=== PATIENT | male | born 1945 | race Caucasian/White ===

== ENCOUNTER 2020-06-04 09:59 | Emergency (ER) | payer MEDICARE, SELFPAY ==
--- NOTE | ~2020-06-04 | CT_ITS ---
EXAMINATION: CT HEAD WITHOUT CONTRAST CT CERVICAL SPINE WITHOUT CONTRAST CLINICAL INFORMATION: Fall. COMPARISON: None TECHNIQUE: CT of the head and cervical spine were performed without intravenous contrast. Multiplanar reformats were rendered and reviewed. This CT examination was performed using dose optimization techniques as appropriate, variously including the following: *Automated exposure control *Adjustment of mA and/or kV according to patient size (this includes techniques or standardized protocols for targeted exams where dose is matched to indication/reason for exam; i.e. extremities or head) *Use of iterative reconstruction technique DLP: 780 mGy-cm. FINDINGS: CT head: No intracranial hemorrhage, large infarction, or mass lesion is seen. No extra-axial collection is appreciated. The ventricles are normal in size and configuration without evidence of hydrocephalus. Mild volume loss is identified. Tiny calcification is seen in the left basal ganglia. The visualized paranasal sinuses and mastoid air cells are clear. CT cervical spine: The cervical alignment is normal. The craniocervical junction is normal. The vertebral body heights are maintained. No cervical spine fracture is seen. Multilevel degenerative changes are seen with osteophytes. Disc narrowing is present at C4-C5, 5-6 and C6-C7 levels. Marked facet arthropathy is seen at C2-C3 on the left side. The paraspinal soft tissues are within normal limits. The partially imaged lung apices are clear. CT/CT head/brain wo con IMPRESSION: CT head: No acute intracranial finding. CT cervical spine: No cervical spine fracture or traumatic malalignment identified.
--- NOTE | ~2020-06-04 | CT_ITS ---
EXAMINATION: CT HEAD WITHOUT CONTRAST CT CERVICAL SPINE WITHOUT CONTRAST CLINICAL INFORMATION: Fall. COMPARISON: None TECHNIQUE: CT of the head and cervical spine were performed without intravenous contrast. Multiplanar reformats were rendered and reviewed. This CT examination was performed using dose optimization techniques as appropriate, variously including the following: *Automated exposure control *Adjustment of mA and/or kV according to patient size (this includes techniques or standardized protocols for targeted exams where dose is matched to indication/reason for exam; i.e. extremities or head) *Use of iterative reconstruction technique DLP: 780 mGy-cm. FINDINGS: CT head: No intracranial hemorrhage, large infarction, or mass lesion is seen. No extra-axial collection is appreciated. The ventricles are normal in size and configuration without evidence of hydrocephalus. Mild volume loss is identified. Tiny calcification is seen in the left basal ganglia. The visualized paranasal sinuses and mastoid air cells are clear. CT cervical spine: The cervical alignment is normal. The craniocervical junction is normal. The vertebral body heights are maintained. No cervical spine fracture is seen. Multilevel degenerative changes are seen with osteophytes. Disc narrowing is present at C4-C5, 5-6 and C6-C7 levels. Marked facet arthropathy is seen at C2-C3 on the left side. The paraspinal soft tissues are within normal limits. The partially imaged lung apices are clear. CT/CT cervical spine wo con IMPRESSION: CT head: No acute intracranial finding. CT cervical spine: No cervical spine fracture or traumatic malalignment identified.
--- NOTE | ~2020-06-04 | XR_ITS ---
EXAMINATION: XR SHOULDER, LEFT CLINICAL INFORMATION: Status post fall. Left shoulder pain. COMPARISON: None TECHNIQUE: AP and scapular Y views of the left shoulder. FINDINGS: Acromial clavicular and glenohumeral joint alignments are maintained. There is no evidence of acute fracture or dislocation on the submitted 2 views. Normal osseous mineralization. No evidence of soft tissue calcifications. No evidence of soft tissue air or radiopaque foreign body. On limited evaluation, the visualized left ribs appear intact. No left pneumothorax is seen. Visualized left lung is clear. XR/XR shoulder LT min 2V IMPRESSION: No evidence of acute fracture or dislocation on the submitted 2 views of the left shoulder.
[2020-06-04 10:06] VITALS: BP 141/78; PULSE 68
[2020-06-04 10:07] VITALS: BP 171/69; PULSE 71; RESP 18; TEMP 36.6; O2SAT 97; BMI 27.4
--- NOTE | 2020-06-04 10:09 | ED_ITS ---
HPI - Fall General Chief Complaint: Fall Stated Complaint: FALL DOWN FLIGHT OF STAIRS,SHOULDER PAIN Time Seen by Provider: 06/04/20 10:09 Source: EMS Mode of arrival: EMS Limitations: no limitations History of Present Illness HPI Narrative: 75-year-old male who denies significant past medical/surgical history not currently taking any medications he presents via EMS from home with complaint of fall down a flight of stairs. He reports he had slippers on he was going down to the basement which has a carpeted stair case he slipped on the top of the stair and landed on his buttock and left shoulder and slid all the way down. States he had back of his head there was positive LOC and family/neighbor called EMS. States the only thing is bothering right now his left shoulder. He denies any prodromal symptoms, chest pain, shortness of breath, abdominal pain or lower extremity injury. He has otherwise not had any recent illnesses. He is up-to-date on his vaccinations. He is in a cervical collar. Onset (ago): minute(s) Fall from: standing Fall witnessed: yes, by family Place fall occurred: home Loss of consciousness: yes Length of LOC: second(s) Prolonged down time: no Symptoms prior to fall: none Context: tripped/slipped Location of injury: other (Left shoulder) Location of injury - extremities: left: shoulder Severity scale (1-10): 5 Associated symptoms (after fall): denies Related Data Allergies Allergy/AdvReac Type Severity Reaction Status Date / Time codeine Allergy Abdominal Verified 06/04/20 10:05 Pain Review of Systems Review of Systems: Constitutional: No Weight loss, No Fever, No Chills, No Night Sweats, No Fatigue, No Malaise ENT/Mouth: No Hearing loss, No Ear Pain, No Nasal Congestion, No Sinus Pain, No Hoarseness, No sore throat, No Rhinorrhea, No Swallowing Difficulty Eyes: No Eye Pain, No Swelling, No Redness, No Foreign Body, No Discharge, No Vision Changes Cardiovascular: No Chest Pain, No SOB, No Dyspnea on Exertion, No Orthopnea, No Edema, No Palpitations Respiratory: No Cough, No Sputum, No Wheezing, No Smoke Exposure, No Dyspnea Gastrointestinal: No Nausea, No Vomiting, No Diarrhea, No Constipation, No abdominal Pain, No Hematochezia, No Melena Genitourinary: no irregular bleeding, No Dysuria, No Urinary Frequency, No Hematuria, No Urinary Incontinence, No Urgency, No Flank Pain, No Urinary Flow Changes, No Hesitancy Musculoskeletal: No joint pain, No Myalgias, No Joint Swelling, as noted per HPI Skin: No Skin Lesions, No rash Neuro: No Weakness, No Numbness, No Paresthesias, No Loss of Consciousness, No Dizziness, No Headache Psych: No Social Issues Heme/Lymph: No Bruising, No Bleeding,No Lymphadenopathy Endocrine: No Polyuria, No Polydipsia, No Temperature Intolerance Yes all other systems are reviewed and are negative [facility] Past Medical History Medical History (Updated 06/04/20 @ 13:14 by Mat Munoz NP) Patient denies medical problems Social History Social History Alcohol intake: current Alcohol intake frequency: 0-2 drinks per day Smoking Status: Never smoker Use of substances other than those prescribed or required for medical reasons: No Advance Directives: No Advance Directives Information Provided: No Physical Exam Vital Signs: Vital Signs: Last Vital Signs Temp 97.8 F 06/04/20 10:07 Pulse 71 06/04/20 10:07 Resp 18 06/04/20 10:07 BP 141/71 H 06/04/20 11:41 Pulse Ox 97 06/04/20 10:07 Body Mass Index 27.4 Reviewed Const: Other: He is able to Greet me with a smile however he grimaces when he moves his left shoulder. General: cooperative and healthy appearing; No acute distress or intoxicated appearing Nutritional Appearance: average body habitus Orientation/consciousness: patient oriented x3 HENMT: Head: Yes normal to inspection Ears: hearing grossly normal bilaterally Eyes: General: appearance normal, both eyes and all related structures Visual Long: normal visual long by confrontation Neck: Other: He has a cervical collar in place Neck: Yes normal visual inspection, No positive Brudzinski's sign, No positive Kernig's sign and No tender Thyroid: Thyroid normal Chest: Chest palpation & inspection: normal inspection of the chest Resp: Effort & Inspection: normal respiratory effort Auscultation: clear to auscultation bilaterally Cardio: Jugular venous distension: no JVD Rhythm: regular rhythm Heart sounds: S1 normal heart sound present and S2 normal heart sound present GI: Inspection: Yes normal to inspection Palpation (GI): Soft to palpation, nontender, no guarding, not rigid and hepatosplenomegaly present Percussion: Yes normal to percussion Auscultation: normal bowel sounds : General: Yes no CVA tenderness Back/Spine/Pelvis: Back: no CVA tenderness Skin: General skin exam: no rashes or lesions noted Neuro: General: patient oriented x3 Extrem: General: Yes normal to inspection Shoulder/upper arm images: 1. Pain over this area and held in flexed position across his chest. Neurovascularly intact. No obvious deformity. No ecchymosis. Course Course Course Narrative: Head and cervical spine CT negative, left shoulder x-ray unremarkable. He is has full range of motion without pain now in the left shoulder after Tylenol. No other complaints of pain or discomfort. He got our bed ambulatory status with gait. Will discharge home with minor head injury, concussion, contusion, return follow-up precautions. He feels comfortable plan. Stable for discharge. MDM - Fall Medical Records Attestation: I reviewed the patient's medical records. Lab Data Attestation: I reviewed the patient's lab results. Result diagrams: 06/04/20 10:21 06/04/20 10:21 Labs: Lab Results 06/04/20 06/04/20 Range/Units 10:21 10:21 WBC 6.2 (4.8-10.8) X10*3/uL RBC 4.80 (4.60-5.80) X10*6/uL Hgb 14.1 (14.0-18.0) g/dl Hct 41.8 L (42-52) % MCV 87.1 (80-98) fL MCH 29.4 (27.0-33.0) pg MCHC 33.7 (31.0-36.0) g/dl RDW 12.6 (11.0-16.0) % Plt Count 205 (160-400) X10*3/uL MPV 10.0 (9.4-12.4) fL Immature Gran % (Auto) 0.3 (0.0-0.4) % Neut % (Auto) 52.2 (45-73) % Lymph % (Auto) 34.7 (20-40) % [place] % (Auto) 6.9 (2-11) % Eos % (Auto) 5.3 H (0-4) % Baso % (Auto) 0.6 (0-2) % Lymph # (Auto) 2.2 (1.2-4.9) X10*3/uL [place] # (Auto) 0.4 (0.1-1.2) X10*3/uL Eos # (Auto) 0.3 (0.0-0.4) X10*3/uL Baso # (Auto) 0.0 (0.0-0.2) X10*3/uL Abs Immat Gran (auto) 0.02 (0.00-0.03) X10*3/uL Absolute Neuts (auto) 3.2 (2.0-8.3) X10*3/uL Absolute Nucleated RBC 0.000 (0.0-0.012) X10*3/uL Nucleated RBC % (auto) 0.0 (0.0-0.2) /100WBC Sodium 137 (135-145) mmol/L Potassium 4.4 (3.3-5.1) mmol/L Chloride 104 (96-108) mmol/L Carbon Dioxide 26 (22-29) mmol/L Anion Gap 11 L (12-20) BUN 20 H (9-16) mg/dL Creatinine 1.12 (0.5-1.4) mg/dL Estim Creat Clear Calc 51.7 Estimated GFR > 60 Random Glucose 171 H (60-115) mg/dL Calcium 9.0 (8.4-10.2) mg/dL Total Bilirubin 0.8 (0.0-1.0) mg/dL AST 18 (5-37) U/L ALT 23 (0-40) U/L Alkaline Phosphatase 57 (39-117) U/L Total Protein 6.1 L (6.5-8.0) g/dL Albumin 3.7 (3.5-5.0) g/dL Imaging Data Head/cervical spine CT: Radiologist's impression: [address] [id number] Scan ReportSigned Patient: Alfredito RousseauMR#: [id number]: [id number]:[id number]/Sex: 75 / MADM Date: 06/04/20Loc: HO.EDAttending Dr: Ordering Physician: Mat Munoz NP Date of Service: 06/04/20 Procedure(s): CT cervical spine wo con Accession Number(s): [id number] cc: Mat Munoz FREIGHT SEPARATOR~ EXAMINATION: CT HEAD WITHOUT CONTRAST CT CERVICAL SPINE WITHOUT CONTRAST CLINICAL INFORMATION: Fall. COMPARISON: None TECHNIQUE: CT of the head and cervical spine were performed without intravenous contrast. Multiplanar reformats were rendered and reviewed. This CT examination was performed using dose optimization techniques as appropriate, variously including the following: *Automated exposure control *Adjustment of mA and/or kV according to patient size (this includes techniques or standardized protocols for targeted exams where dose is matched to indication/reason for exam; i.e. extremities or head) *Use of iterative reconstruction technique DLP: 780 mGy-cm. FINDINGS: CT head: No intracranial hemorrhage, large infarction, or mass lesion is seen. No extra-axial collection is appreciated. The ventricles are normal in size and configuration without evidence of hydrocephalus. Mild volume loss is identified. Tiny calcification is seen in the left basal ganglia. The visualized paranasal sinuses and mastoid air cells are clear. CT cervical spine: The cervical alignment is normal. The craniocervical junction is normal. The vertebral body heights are maintained. No cervical spine fracture is seen. Multilevel degenerative changes are seen with osteophytes. Disc narrowing is present at C4-C5, 5-6 and C6-C7 levels. Marked facet arthropathy is seen at C2-C3 on the left side. The paraspinal soft tissues are within normal limits. The partially imaged lung apices are clear. CT/CT cervical spine wo con IMPRESSION: CT head: No acute intracranial finding. CT cervical spine: No cervical spine fracture or traumatic malalignment identified. Dictated By:DWIGHT WALL MDSigned By:<Electronically signed by DWIGHT WALL MD in [place]>06/04/20 1154 DD/ 1010TD/TT: Fisheries Biologist: GAVIN Left shoulder x-ray: Radiologist's impression: [address] [id number] ReportSigned Patient: Alfredito RousseauMR#: [id number]: [id number]:[id number]/Sex: 75 / MADM Date: 06/04/20Loc: HO.EDAttending Dr: Ordering Physician: Mat Munoz NP Date of Service: 06/04/20 Procedure(s): XR shoulder LT min 2V Accession Number(s): [id number] cc: Mat Munoz NP~ EXAMINATION: XR SHOULDER, LEFT CLINICAL INFORMATION: Status post fall. Left shoulder pain. COMPARISON: None TECHNIQUE: AP and scapular Y views of the left shoulder. FINDINGS: Acromial clavicular and glenohumeral joint alignments are maintained. There is no evidence of acute fracture or dislocation on the submitted 2 views. Normal osseous mineralization. No evidence of soft tissue calcifications. No evidence of soft tissue air or radiopaque foreign body. On limited evaluation, the visualized left ribs appear intact. No left pneumothorax is seen. Visualized left lung is clear. XR/XR shoulder LT min 2V IMPRESSION: No evidence of acute fracture or dislocation on the submitted 2 views of the left shoulder. Dictated By:TYLER MENENDEZ MDSigned By:<Electronically signed by TYLER MENENDEZ MD in [place]>06/04/20 1231 DD/ 1010TD/TT: Fisheries Biologist: AP Discharge Plan Discharge Clinical Impression: Fall, Contusion of left shoulder, Contusion of scalp, Concussion with loss of consciousness Patient Disposition: Home, Self-Care Instructions: Contusion in Adults (ED), Concussion (ED), Fall Prevention (ED) Additional Instructions: Home care instruction Return if any concerns or symptoms Follow up as instructed Thank you Referrals: Srinivasa Francisco MD [Primary Care Provider] - 5 days
[2020-06-04] MEDS: Acetaminophen 325 MG TABLET 650 MG PO (10:25)
[2020-06-04] MEDS: 0.9 % Sodium Chloride 500 ML IV (10:27)
[2020-06-04 10:29] LABS: MANUAL DIFF FLAG NO
[2020-06-04 10:30] LABS: Basophils Percent Auto 0.6 % (0-2); Eosinophils Absolute Auto 0.3 X10*3/uL (0.0-0.4); Eosinophils Percent Auto 5.3 % (0-4); Hematocrit 41.8 % (42-52); Hemoglobin 14.1 g/dl (14.0-18.0); Imm Gran Abs Auto 0.02 X10*3/uL (0.00-0.03); Imm Gran Pct Auto 0.3 % (0.0-0.4); Lymphocytes Absolute Auto 2.2 X10*3/uL (1.2-4.9); Lymphocytes Percent Auto 34.7 % (20-40); Mean Corpuscular HGB Conc 33.7 g/dl (31.0-36.0); Mean Corpuscular Hemoglobin 29.4 pg (27.0-33.0); Mean Corpuscular Volume 87.1 fL (80-98); Monocytes Absolute Auto 0.4 X10*3/uL (0.1-1.2); Monocytes Percent Auto 6.9 % (2-11); Neutrophils Absolute Auto 3.2 X10*3/uL (2.0-8.3); Neutrophils Percent Auto 52.2 % (45-73); Platelet Count 205 X10*3/uL (160-400); Red Cell Distribution Width 12.6 % (11.0-16.0); White Blood Count 6.2 X10*3/uL (4.8-10.8)
[2020-06-04 10:51] LABS: Alanine Aminotransferase 23 U/L (0-40); Albumin Level 3.7 g/dL (3.5-5.0); Alkaline Phosphatase 57 U/L (39-117); Anion Gap 11 (12-20); Aspartate Amino Transferase 18 U/L (5-37); Bilirubin Total 0.8 mg/dL (0.0-1.0); Blood Urea Nitrogen 20 mg/dL (9-16); Carbon Dioxide 26 mmol/L (22-29); Chloride 104 mmol/L (96-108); Creatinine Clr Calc Pharmacy 51.7; Estimated Glomerular Filt Rate > 60; Glucose Random 171 mg/dL (60-115); Potassium 4.4 mmol/L (3.3-5.1); Sodium 137 mmol/L (135-145); Total Protein 6.1 g/dL (6.5-8.0)
[2020-06-04 11:02] VITALS: BP 144/73
[2020-06-04 11:41] VITALS: BP 141/71
--- NOTE | 2020-06-04 11:58 | PC.NURSE ---
Pt report that pain is now a 7 from a 6. No effect from tyenol. Pt is however refusing any other pain medication at this time.
--- NOTE | 2020-06-04 12:03 | PC.NURSE ---
C-collar removed per Mat. Pt now awaiting x-ray of left shoulder
== END 2020-06-04 13:25 | disposition home or self-care (01) ==
PROVIDERS: Nurse Practitioner Primary Care; Emergency Provider Emergency Medicine; PCP Internal Medicine
DX: S06.0X1A Concussion with loss of consciousness of 30 minutes or less, initial encounter (principal); S40.012A Contusion of left shoulder, initial encounter; S00.03XA Contusion of scalp, initial encounter; W10.8XXA Fall (on) (from) other stairs and steps, initial encounter; Y93.89 Activity, other specified; Y92.018 Other place in single-family (private) house as the place of occurrence of the external cause; Y99.9 Unspecified external cause status
CPT/HCPCS: 36415; 70450; 72125; 73030; 80053; 85025; 96360; 99284